=== PATIENT | male | born 1965 | race Caucasian/White ===

== ENCOUNTER 2021-06-02 20:31 | Emergency (ER) | payer BC ==
[~2021-06-02] VITALS: Ht 170.2 cm; Wt 79.4 kg
[2021-06-02 20:46] VITALS: BP 193/99
[2021-06-02] MEDS ORDERED: LIDOCAINE 1%-EPI 1:100,000 20 ML VIAL ONE (20:59)
[2021-06-02] MEDS ORDERED: LORAZEPAM 1 MG TABLET PO ONE (21:30)
[2021-06-02] MEDS ORDERED: LORAZEPAM 1 MG TABLET ONE (21:51)
--- NOTE | 2021-06-02 22:09 | NUR ---
Patient discharged to home in stable condition. Written and verbal after care instructions given. Patient verbalizes understanding of instruction. Pt ambulatory with a steady gait
== END 2021-06-02 22:09 | disposition home or self-care (01) ==
LOC: ER 20:37
DX: R04.0 Epistaxis (principal); F41.9 Anxiety disorder, unspecified; Z60.2 Problems related to living alone
CPT/HCPCS: 30901; 99284; J3490